=== PATIENT | male | born 1945 | race Caucasian/White ===

== ENCOUNTER 2018-11-03 05:28 | Day surgery (SDC) | payer OTHER ==
[2018-11-03] MEDS ORDERED: ROCURONIUM 50 MG INJ (06:24)
[2018-11-03] MEDS ORDERED: MIDAZOLAM 1 MG/ML 2 ML INJ (06:24)
[2018-11-03] MEDS ORDERED: ONDANSETRON 4 MG INJ (06:24)
[2018-11-03] MEDS ORDERED: PROPOFOL 20 ML (06:24)
[2018-11-03] MEDS ORDERED: CEFAZOLIN 1 GM INJ (06:25)
[2018-11-03] MEDS ORDERED: KETOROLAC 30 MG INJ (06:25)
[2018-11-03] MEDS: SOD CHLORIDE 0.9% 1,000 ML IV (06:39)
[2018-11-03] MEDS: CEFAZOLIN 2 GM/50 ML (PMX) 50 ML IVPB (07:00)
[2018-11-03] MEDS: POLYMYXIN/BACITRACIN 1L IRRIG (07:07)
[2018-11-03] MEDS ORDERED: NEOSTIGMINE 3 MG/3 ML SYRINGE (08:17)
[2018-11-03] MEDS ORDERED: GLYCOPYRROLATE 0.4 MG INJ (08:17)
[2018-11-03] MEDS ORDERED: ONDANSETRON 4 MG INJ IV (08:30)
[2018-11-03] MEDS ORDERED: HYDROmorphONE 1 MG/5 ML IV SYRINGE IV ×2 (08:30)
[2018-11-03] MEDS ORDERED: OXYCODONE/ACETAMINOPHEN (5/325) TAB PO (08:30)
[2018-11-03] MEDS: BUPIVACAINE 0.25% (MPF) 30 ML INJ (08:45)
[2018-11-03] MEDS: HYDROCODONE/APAP (5/325) TAB PO (09:28)
== END 2018-11-03 10:20 | disposition home or self-care (01) ==
LOC: SDS 05:28
DX: K40.30 Unilateral inguinal hernia, with obstruction, without gangrene, not specified as recurrent (principal); I10 Essential (primary) hypertension; E78.5 Hyperlipidemia, unspecified; Z79.82 Long term (current) use of aspirin
CPT/HCPCS: 49507